=== PATIENT | female | born 1945 | race Two or more races ===

== ENCOUNTER 2018-07-12 13:28 | Outpatient (RCR) | payer MEDICARE, OTHER | END 2018-07-16 | disposition home or self-care (01) | LOC: WCC 13:28 | DX: L97.512 Non-pressure chronic ulcer of other part of right foot with fat layer exposed (principal); E11.621 Type 2 diabetes mellitus with foot ulcer; I70.201 Unspecified atherosclerosis of native arteries of extremities, right leg; I11.9 Hypertensive heart disease without heart failure; E11.9 Type 2 diabetes mellitus without complications; M06.9 Rheumatoid arthritis, unspecified | CPT/HCPCS: 11042; 87070; 87181; 87205 ==

== ENCOUNTER 2018-07-27 13:46 | Outpatient (RCR) | payer MEDICARE, OTHER | END 2018-08-15 | disposition home or self-care (01) | LOC: WCC 13:46 | DX: E11.621 Type 2 diabetes mellitus with foot ulcer (principal); L97.512 Non-pressure chronic ulcer of other part of right foot with fat layer exposed; I70.201 Unspecified atherosclerosis of native arteries of extremities, right leg; I11.9 Hypertensive heart disease without heart failure; E11.9 Type 2 diabetes mellitus without complications; M06.9 Rheumatoid arthritis, unspecified; Z79.82 Long term (current) use of aspirin; Z79.01 Long term (current) use of anticoagulants | CPT/HCPCS: 11042; 71045; 82962; G0277 ==

== ENCOUNTER → 2018-08-09 | Outpatient (CLI) | payer MEDICARE, OTHER ==
--- NOTE | 2018-08-09 17:43 | Diagnostic Imaging Report ---
Indication: Cough Technique: XRAY Chest 1v Comparison: None Findings: Heart size and mediastinal contours are within normal limits for AP technique. There is evidence of prior median sternotomy. There is fracturing of some superior sternal wires. Some surgical material is also noted in the bilateral hilar regions. Likely prior coronary arterial stenting. Additionally there is a approximately 1.8 cm linear metallic density structure projecting over the left upper quadrant may also be post surgical in etiology. Correlation with surgical history and physical exam also recommended. There is no definite focal airspace consolidation. Costophrenic sulci are sharp. No pneumothorax. No acute osseous abnormality. IMPRESSION: * No focal airspace consolidation or pleural effusion or pneumothorax. * Postoperative appearance of the chest with evidence of prior median sternotomy. * 1.8 cm linear metallic density projecting over the left upper quadrant may also be post surgical in etiology versus external to the patient versus ingested as it projects over the stomach. Correlation with history and prior exams is recommended to assess for stability of this finding. Correlation with physical exam is recommended. Additionally, repeat exam can be obtained to assess for persistence of this finding.
== END | disposition home or self-care (01) ==
LOC: RAD 12:22
DX: R05 Cough (principal); Z98.890 Other specified postprocedural states
CPT/HCPCS: 71045

== ENCOUNTER 2018-08-16 09:33 | Outpatient (RCR) | payer MEDICARE, OTHER ==
[2018-08-31] MEDS ORDERED: UNOBMED (15:14)
[2018-08-31] MEDS ORDERED: VALACYCLOVIR500 MG ORAL (19:48)
[2018-08-31] MEDS ORDERED: ASPIR 8181 MG ORAL (19:48)
[2018-08-31] MEDS ORDERED: FOLIC ACID1 MG ORAL (19:48)
[2018-08-31] MEDS ORDERED: ELIQUIS5 MG PO (19:48)
[2018-08-31] MEDS ORDERED: PENTOXIFYLLINE400 MG ORAL (19:48)
[2018-08-31] MEDS ORDERED: ISOSORBIDE MONO30 M1 PO (19:48)
[2018-08-31] MEDS ORDERED: DIOVAN80 MG ORAL (19:48)
[2018-08-31] MEDS ORDERED: METOPROLOL TART50 M1 ORAL (19:48)
[2018-08-31] MEDS ORDERED: DEXILANT60 MG ORAL (19:48)
[2018-08-31] MEDS ORDERED: AMLODIPINE BESYL5 MG ORAL (19:48)
[2018-08-31] MEDS ORDERED: METOPROLOL TART25 MG ORAL (19:48)
[2018-08-31] MEDS ORDERED: LYRICA75 M1 ORAL (19:48)
[2018-08-31] MEDS ORDERED: CILOSTAZOL100 MG PO (19:48)
[2018-08-31] MEDS ORDERED: LINZESS145 MCG PO (19:48)
[2018-08-31] MEDS ORDERED: METOPROLOL-HCT1 EAC3 ORAL (22:38)
== END 2018-09-15 | disposition home or self-care (01) ==
LOC: WCC 09:33
DX: E11.621 Type 2 diabetes mellitus with foot ulcer (principal); L97.512 Non-pressure chronic ulcer of other part of right foot with fat layer exposed; L97.511 Non-pressure chronic ulcer of other part of right foot limited to breakdown of skin; I70.201 Unspecified atherosclerosis of native arteries of extremities, right leg; Z98.84 Bariatric surgery status; I11.9 Hypertensive heart disease without heart failure; E11.9 Type 2 diabetes mellitus without complications; M06.9 Rheumatoid arthritis, unspecified; Z79.82 Long term (current) use of aspirin; Z79.01 Long term (current) use of anticoagulants
CPT/HCPCS: 11042; 82962; G0277

== ENCOUNTER 2018-08-31 12:09 | Inpatient (IN) | payer MEDICARE, OTHER ==
[~2018-08-31] VITALS: Ht 160 cm; Wt 63.4 kg
[2018-08-31 12:31] VITALS: BP 78/36
--- NOTE | 2018-08-31 13:04 | Emergency Room Report ---
History of Present Illness General Chief Complaint: Generalized Weakness Source: Patient Present Illness HPI Patient presents with complaints of low blood pressure Patient was seen by a primary physician/outside physician Patient's blood pressure was found to be low and sent to the emergency room Here the patient is not quite sure exactly what was causing the low blood pressure denies any fevers denies any chest pain and eyes any vomiting Patient reports that she had been taking a new medication for shingles and contribute some of her findings to that possibly Allergies: Coded Allergies: No Known Allergies (Unverified , 08/31/18) Patient History Past Medical History: see triage record Pertinent Family History: none Reviewed Nursing Documentation: PMH: Agreed; PSxH: Agreed Nursing Documentation-PMH Past Medical History: No History, Except For Hx Diabetes: Yes Review of Systems All Other Systems: negative except mentioned in HPI Physical Exam Vital Signs Date Time Temp Pulse Resp B/P (MAP) Pulse Ox O2 Delivery O2 Flow Rate FiO2 08/31/18 12:18 97.0 63 10 75/38 100 Room Air 97.0 Sp02 EP Interpretation: reviewed, normal General Appearance: other - Pallar Head: normocephalic, atraumatic Eyes: bilateral eye PERRL, bilateral eye EOMI ENT: hearing grossly normal, normal pharynx, TMs + canals normal, uvula midline Neck: full range of motion, supple, no meningismus, no bony tend Respiratory: lungs clear, normal breath sounds, no rhonchi, no respiratory distress, no retraction, no accessory muscle use Cardiovascular #1: normal peripheral pulses, regular rate, rhythm, no edema, no gallop, no JVD, no murmur Gastrointestinal: normal bowel sounds, non tender, soft, no mass, no organomegaly, non-distended, no guarding, no hernia, no pulsatile mass, no rebound Genitourinary: no CVA tenderness Musculoskeletal: normal inspection Neurologic: oriented x3, responsive, welder pipe making III-XII nml as tested, motor strength/ tone normal, sensory intact Psychiatric: mood/affect normal Skin: warm/dry, palpation normal, rash - Patient has healing ulcers on the right foot, other - Evidence of healing shingles on the left flank area dermatomal fashion Lymphatic: normal inspection, no adenopathy Medical Decision Making Diagnostic Impression: Primary Impression: Episode of generalized weakness Additional Impressions: Hypotensive episode Dehydration ER Course Patient is a fairly complex patient with multiple differential to consideration including but not limited to cardiac cardiopulmonary , infectious , metabolic and vascular emergencies Patient's blood work reveals abnormal kidney function Has responded well to IV bolus however given the significant hypotensive episode and the lack of obvious ideology patient will require admission Please note that we were also contacted by radiology Noting that there was a question of retained foreign body This is coming indicated to the admitting physician and will require further evaluation Labs Test 08/31/18 12:55 White Blood Count 5.2 K/UL (4.8-10.8) Red Blood Count 3.21 M/UL (4.20-5.40) Hemoglobin 9.2 G/DL (12.0-16.0) Hematocrit 27.7 % (37.0-47.0) Mean Corpuscular Volume 86 FL (80-99) Mean Corpuscular Hemoglobin 28.6 PG (27.0-31.0) Mean Corpuscular Hemoglobin Concent 33.1 G/DL (32.0-36.0) Red Cell Distribution Width 12.0 % (11.6-14.8) Platelet Count 193 K/UL (150-450) Mean Platelet Volume 8.4 FL (6.5-10.1) Neutrophils (%) (Auto) 54.4 % (45.0-75.0) Lymphocytes (%) (Auto) 34.4 % (20.0-45.0) Monocytes (%) (Auto) 9.2 % (1.0-10.0) Eosinophils (%) (Auto) 0.9 % (0.0-3.0) Basophils (%) (Auto) 1.1 % (0.0-2.0) Prothrombin Time 10.8 SEC (9.30-11.50) Prothromb Time International Ratio 1.0 (0.9-1.1) Activated Partial Thromboplast Time 27 SEC (23-33) Sodium Level 132 MMOL/L (136-145) Potassium Level 4.2 MMOL/L (3.5-5.1) Chloride Level 101 MMOL/L (98-107) Carbon Dioxide Level 19 MMOL/L (21-32) Anion Gap 12 mmol/L (5-15) Blood Urea Nitrogen 45 mg/dL (7-18) Creatinine 1.8 MG/DL (0.55-1.30) Estimat Glomerular Filtration Rate mL/min (>60) Glucose Level 131 MG/DL (74-106) Lactic Acid Level 1.30 mmol/L (0.4-2.0) Calcium Level 8.5 MG/DL (8.5-10.1) Total Bilirubin < 0.1 MG/DL (0.2-1.0) Aspartate Amino Transf (AST/SGOT) 17 U/L (15-37) Alanine Aminotransferase (ALT/SGPT) 16 U/L (12-78) Alkaline Phosphatase 79 U/L (46-116) Total Creatine Kinase 41 U/L (26-308) Creatine Kinase MB 0.9 NG/ML (0.0-3.6) Creatine Kinase MB Relative Index 2.1 Troponin I 0.001 ng/mL (0.000-0.056) Pro-B-Type Natriuretic Peptide 461 pg/mL (0-125) Total Protein 6.7 G/DL (6.4-8.2) Albumin 3.1 G/DL (3.4-5.0) Globulin 3.6 g/dL Albumin/Globulin Ratio 0.9 (1.0-2.7) Lipase 65 U/L (73-393) Rhythm Strip Diag. Results EP Interpretation: yes Rate: 67 Rhythm: NSR, no PVC's, no ectopy Chest X-Ray Diagnostic Results Chest X-Ray Diagnostic Results : Chest X-Ray Ordered: Yes # of Views/Limited/Complete: 1 View Indication: Chest Pain EP Interpretation: Yes Interpretation: no consolidation, no effusion, no pneumothorax, no acute cardiopulmonary disease Impression: No acute disease Electronically Signed by: DO PAPO Alexander Scribe Text Please note additional finding by radiology, reporting that there is a question of foreign body Last Vital Signs Date Time Temp Pulse Resp B/P (MAP) Pulse Ox O2 Delivery O2 Flow Rate FiO2 08/31/18 12:31 62 14 78/36 100 Room Air 08/31/18 12:18 97.0 97.0 Status: improved Disposition: ADMITTED INPATIENT Condition: Serious Referrals: NOT CHOSEN IPA/,REFERRING (PCP) Yanet Paez DO Aug 31, 2018 13:04
[2018-08-31 13:12] LABS: BASOPHILS % (AUTO) 1.1 % (0.0-2.0); EOSINOPHILS % (AUTO) 0.9 % (0.0-3.0); HEMATOCRIT 27.7 % (37.0-47.0); HEMOGLOBIN 9.2 G/DL (12.0-16.0); LYMPHOCYTES % (AUTO) 34.4 % (20.0-45.0); MEAN CORPUSCULAR VOLUME 86 FL (80-99); MONOCYTES % (AUTO) 9.2 % (1.0-10.0); NEUTROPHILS % (AUTO) 54.4 % (45.0-75.0); PLATELET COUNT 193 K/UL (150-450); RED BLOOD COUNT 3.21 M/UL (4.20-5.40); WHITE BLOOD COUNT 5.2 K/UL (4.8-10.8)
[2018-08-31 13:45] VITALS: BP 95/42
[2018-08-31 13:48] LABS: ANION GAP 12 mmol/L (5-15); BLOOD UREA NITROGEN 45 mg/dL (7-18); CALCIUM 8.5 MG/DL (8.5-10.1); CARBON DIOXIDE 19 MMOL/L (21-32); CHLORIDE 101 MMOL/L (98-107); CREATININE 1.8 MG/DL (0.55-1.30); POTASSIUM 4.2 MMOL/L (3.5-5.1); SODIUM 132 MMOL/L (136-145)
[2018-08-31 14:02] LABS: ALANINE AMINOTRANSFERASE 16 U/L (12-78); ALBUMIN 3.1 G/DL (3.4-5.0); ALBUMIN/GLOBULIN RATIO 0.9 (1.0-2.7); ALKALINE PHOSPHATASE 79 U/L (46-116); ASPARTATE AMINO TRANSFERASE 17 U/L (15-37); BILIRUBIN,TOTAL < 0.1 MG/DL (0.2-1.0); CKMB 0.9 NG/ML (0.0-3.6); CREATINE KINASE 41 U/L (26-308)
--- NOTE | 2018-08-31 14:48 | Diagnostic Imaging Report ---
Indication: Chest pain Technique: One view of the chest Comparison: 08/09/2018 Findings: Persistent elevation of the left hemidiaphragm, somewhat increased from the prior exam. Resultant minimal compressive atelectasis at the left lung base. Lungs and pleural spaces are otherwise clear. The heart size is normal. There is evidence of prior median sternotomy as well as prior coronary artery stenting. The heart size is normal. Again projected over the left upper quadrant of the abdomen is a curvilinear metallic opacity, also reported on prior study Impression: No acute process Elevated left hemidiaphragm Stable curvilinear density, possibly retained surgical needle, again seen projected below the left hemidiaphragm. Correlate with prior surgical history. If clinically indicated, CT may be useful to localize Findings discussed by phone with Dr. Isabel in the emergency room at the time of interpretation
[2018-08-31] MEDS ORDERED: UNOBMED (15:14)
[2018-08-31 16:59] VITALS: BP 98/39
[2018-08-31] MEDS ORDERED: LINZESS145 MCG PO (19:48)
[2018-08-31] MEDS ORDERED: METOPROLOL TART50 M1 ORAL (19:48)
[2018-08-31] MEDS ORDERED: CILOSTAZOL100 MG PO (19:48)
[2018-08-31] MEDS ORDERED: VALACYCLOVIR500 MG ORAL (19:48)
[2018-08-31] MEDS ORDERED: FOLIC ACID1 MG ORAL (19:48)
[2018-08-31] MEDS ORDERED: DIOVAN80 MG ORAL (19:48)
[2018-08-31] MEDS ORDERED: PENTOXIFYLLINE400 MG ORAL (19:48)
[2018-08-31] MEDS ORDERED: LYRICA75 M1 ORAL (19:48)
[2018-08-31] MEDS ORDERED: AMLODIPINE BESYL5 MG ORAL (19:48)
[2018-08-31] MEDS ORDERED: ELIQUIS5 MG PO (19:48)
[2018-08-31] MEDS ORDERED: ISOSORBIDE MONO30 M1 PO (19:48)
[2018-08-31] MEDS ORDERED: ASPIR 8181 MG ORAL (19:48)
[2018-08-31] MEDS ORDERED: METOPROLOL TART25 MG ORAL (19:48)
[2018-08-31] MEDS ORDERED: DEXILANT60 MG ORAL (19:48)
[2018-08-31 20:00] VITALS: BP 105/48
[2018-08-31] MEDS ORDERED: Milk of Magnesia 30ml Ud ORAL PRN (21:45)
[2018-08-31] MEDS ORDERED: METOPROLOL-HCT1 EAC3 ORAL (22:38)
[2018-09-01] VITALS: BP 137/71
[2018-09-01] MEDS ORDERED: Piperacillin/Tazobactam 3.375 GM in D5W 110 ML IVPB SCH ×2
--- NOTE | 2018-09-01 03:15 | History and Physical Report ---
DATE OF ADMISSION: 08/31/2018 REASON FOR ADMISSION: Generalized weakness and hypotension. HISTORY OF PRESENT ILLNESS: The patient is a 73-year-old female admitted for low blood pressure. The patient is closely cared for at the [facility]. The patient presented to the emergency room for further evaluation. Currently, denies any fevers or chills. The patient has not taken medication for shingles and is on multitude of other medical problems. PAST MEDICAL HISTORY: Notable for hypotension, reflux disease, possible coronary artery disease, chronic constipation, hypertension, hypertensive heart disease, recent diagnosis of shingles, evidence of neuropathy, and myelodysplastic syndrome. MEDICATIONS: Reviewed. ALLERGIES: Reviewed. SOCIAL HISTORY: The patient is currently unemployed. Nonsmoker and nondrinker. REVIEW OF SYSTEMS: Otherwise reviewed. All 10 points reviewed in detail. In general, the patient is weak and restless than usual. No focal pain. The patient is otherwise nonfocal. PHYSICAL EXAMINATION: GENERAL: A well-developed female, appears to be somewhat frail. VITAL SIGNS: In the emergency room, systolic blood pressure of 75. Current vital signs, blood pressure 80/39, temperature 97 degrees, pulse 67, and O2 sat is 100%. HEENT: Overall negative. NECK: Supple. No adenopathy. LUNGS: With adequate air entry. No rhonchi or wheezes. CARDIAC: Normal S1 and S2. Slightly distant. No murmurs, rubs, or gallops. Regular rate and rhythm. ABDOMEN: Soft, nontender, and nondistended. EXTREMITIES: No cyanosis or clubbing. No significant edema. NEUROLOGIC: Grossly nonfocal. Alert and oriented x3. SKIN: Noted and reviewed. Evidence of any shingles were not found. LABORATORY AND DIAGNOSTIC DATA: White cell count 5.2, hemoglobin 9.2, hematocrit 27, and platelets are normal. Sodium 132, BUN 45, and creatinine 1.8. Albumin is 3.1. Lipase 65. IMPRESSION: Hypotension, possible intravascular volume depletion; evidence of acute renal failure; hyponatremia; mild protein-calorie malnutrition; evidence of anemia, possible underlying infection; elevated hypertonic diaphragm, and questionable retained surgical needle. RECOMMENDATIONS: Supportive care. IV hydration. Empiric antibiotics. Resume medication. Monitor clinically. Monitor blood pressure. Followup renal function. We will obtain nephrology evaluation. We will assess clinically for further changes and recommendations. Discharge once improved and stable to home with home health. Lul Ocasio M.D. DR: MAYELA JOB#: [id number] CC:
[2018-09-01 04:00] VITALS: BP 113/46
[2018-09-01] MEDS: NovoLOG Insulin Flexpen SUBQ SCH ×4 (06:22→20:58)
[2018-09-01 08:00] VITALS: BP 149/63
[2018-09-01] MEDS: traMADol 50mg tab ORAL PRN ×2 (10:17→20:53)
[2018-09-01] MEDS: Heparin 5000 units/ml inj SUBQ SCH ×2 (10:21→18:00)
[2018-09-01] MEDS: valACYclovir HCL 500mg tab ORAL SCH (11:23)
[2018-09-01 12:00] VITALS: BP 149/66
[2018-09-01] MEDS ORDERED: Aspirin Baby 81mg ORAL SCH (12:00)
[2018-09-01] MEDS: Piperacillin/Tazobactam 3.375 GM in D5W 110 ML IVPB SCH ×2 (12:56→20:52)
--- NOTE | 2018-09-01 15:09 | Diagnostic Imaging Report ---
Clinical Indication: Evaluation of foreign body seen on prior plain radiograph Technique: Spiral acquisitions obtained through the chest. No IV contrast utilized, . Multiplanar reconstructions generated. Total dose length product 610.21 mGycm. CTDIvol(s) 16.29 mGy. Dose reduction achieved using automated exposure control Comparison: Chest radiograph dated 08/31/2018 Findings: Radiopaque curvilinear foreign body, configuration of which is suggestive of retained surgical needle, is seen in the anterior lower hemithorax, just above and anterior to the anterior diaphragm, immediately posterior to the fifth anterior intercostal space, at the anterior aspect of the pericardial fat. There is no evidence of surrounding inflammation or hemorrhage. Vague groundglass opacity is seen occupying much of the upper lobes bilaterally. Similar groundglass opacities are seen at the lung bases. No focal airspace consolidation. No infiltrates, effusions, nodules, or masses. There are extensive coronary artery calcifications and possible coronary stents. There is evidence of prior CABG. The heart size is normal. No pericardial effusion. The esophagus is unremarkable. No mediastinal or hilar mass or adenopathy is evident. The thyroid is enlarged and heterogeneous without definite discrete nodules. There are some calcifications within the thyroid. No axillary or chest wall mass or adenopathy. The bones demonstrate slight anterior wedging of the T11 vertebral body.. The included upper abdominal anatomy demonstrates small gallstones layering within the gallbladder. Calcifications in the renal sinuses are probably largely arterial. Impression: Radiopaque foreign body, likely a retained surgical needle, confirmed, seen in the anterior lower thorax either within the pericardial fat or within the anterior costophrenic sulcus. No evidence of surrounding inflammation, hemorrhage, or other complication related to such Nonspecific bilateral very faint pulmonary parenchymal groundglass opacities. These may represent areas of atelectasis or very early edema Evidence of prior CABG. Enlarged heterogeneous thyroid with calcifications, no definite discrete nodules Slight anterior wedging of the T11 vertebral body, could indicate a compression fracture, age indeterminate. Consider MRI to better characterize if patient is suspected to be symptomatic from this Cholelithiasis incidentally noted The CT scanner at [facility] is accredited by the [employer] and the scans are performed using protocols designed to limit radiation exposure to as low as reasonably achievable to attain images of sufficient resolution adequate for diagnostic evaluation.
[2018-09-01 16:00] VITALS: BP 143/80
--- NOTE | 2018-09-01 16:12 | Cardiology Report ---
APPROVED REPORT EKG Measurement Heart [id number] Normal sinus rhythm Minimal voltage criteria for LVH, may be normal variant Cannot rule out Inferior infarct, age undetermined Abnormal ECG
--- NOTE | 2018-09-01 18:24 | General Progress Note ---
Assessment/Plan Assessment/Plan IMPRESSION: Hypotension, possible intravascular volume depletion- improved; evidence of acute renal failure; hyponatremia; mild protein-calorie malnutrition; evidence of anemia, possible underlying infection; elevated diaphragm, and questionable retained surgical needle. RECOMMENDATIONS: Supportive care. IV hydration. Empiric antibiotics. maintain medication. Monitor clinically. Monitor blood pressure. Followup renal function and optimize. nephrology evaluation. We will assess clinically for further changes and recommendations. CT chest Discharge once improved and stable to home with home health. Subjective Allergies: Coded Allergies: No Known Allergies (Unverified , 08/31/18) Subjective bp now elevated weak has PT at home has some pain Objective Last 24 Hour Vital Signs Date Time Temp Pulse Resp B/P (MAP) Pulse Ox O2 Delivery O2 Flow Rate FiO2 09/01/18 16:00 97.0 81 19 143/80 (101) 99 97.0 09/01/18 12:00 97.9 77 22 149/66 (93) 99 97.9 09/01/18 12:00 67 09/01/18 11:23 73 149/63 09/01/18 10:47 98.0 09/01/18 10:17 98.0 09/01/18 09:37 98.0 09/01/18 09:07 98.0 09/01/18 08:10 Room Air 09/01/18 08:00 98.0 73 21 149/63 (91) 100 98.0 09/01/18 07:51 71 09/01/18 04:00 71 09/01/18 04:00 97.3 70 20 113/46 (68) 97 97.3 09/01/18 00:00 76 09/01/18 00:00 97.3 89 24 137/71 (93) 94 97.3 08/31/18 21:00 Room Air 08/31/18 20:00 97.3 73 20 105/48 (67) 99 97.3 08/31/18 20:00 72 08/31/18 18:43 Room Air Intake and Output 08/31/18 09/01/18 19:00 07:00 Intake Total 0 ml Balance 0 ml Intake Oral 0 ml # Voids 1 # Bowel Movements 1 Labs Test 08/31/18 12:55 White Blood Count 5.2 K/UL (4.8-10.8) Red Blood Count 3.21 M/UL (4.20-5.40) Hemoglobin 9.2 G/DL (12.0-16.0) Hematocrit 27.7 % (37.0-47.0) Mean Corpuscular Volume 86 FL (80-99) Mean Corpuscular Hemoglobin 28.6 PG (27.0-31.0) Mean Corpuscular Hemoglobin Concent 33.1 G/DL (32.0-36.0) Red Cell Distribution Width 12.0 % (11.6-14.8) Platelet Count 193 K/UL (150-450) Mean Platelet Volume 8.4 FL (6.5-10.1) Neutrophils (%) (Auto) 54.4 % (45.0-75.0) Lymphocytes (%) (Auto) 34.4 % (20.0-45.0) Monocytes (%) (Auto) 9.2 % (1.0-10.0) Eosinophils (%) (Auto) 0.9 % (0.0-3.0) Basophils (%) (Auto) 1.1 % (0.0-2.0) Prothrombin Time 10.8 SEC (9.30-11.50) Prothromb Time International Ratio 1.0 (0.9-1.1) Activated Partial Thromboplast Time 27 SEC (23-33) Sodium Level 132 MMOL/L (136-145) Potassium Level 4.2 MMOL/L (3.5-5.1) Chloride Level 101 MMOL/L (98-107) Carbon Dioxide Level 19 MMOL/L (21-32) Anion Gap 12 mmol/L (5-15) Blood Urea Nitrogen 45 mg/dL (7-18) Creatinine 1.8 MG/DL (0.55-1.30) Estimat Glomerular Filtration Rate mL/min (>60) Glucose Level 131 MG/DL (74-106) Hemoglobin A1c 10.3 % (4.3-6.0) Lactic Acid Level 1.30 mmol/L (0.4-2.0) Calcium Level 8.5 MG/DL (8.5-10.1) Total Bilirubin < 0.1 MG/DL (0.2-1.0) Aspartate Amino Transf (AST/SGOT) 17 U/L (15-37) Alanine Aminotransferase (ALT/SGPT) 16 U/L (12-78) Alkaline Phosphatase 79 U/L (46-116) Total Creatine Kinase 41 U/L (26-308) Creatine Kinase MB 0.9 NG/ML (0.0-3.6) Creatine Kinase MB Relative Index 2.1 Troponin I 0.001 ng/mL (0.000-0.056) Pro-B-Type Natriuretic Peptide 461 pg/mL (0-125) Total Protein 6.7 G/DL (6.4-8.2) Albumin 3.1 G/DL (3.4-5.0) Globulin 3.6 g/dL Albumin/Globulin Ratio 0.9 (1.0-2.7) Lipase 65 U/L (73-393) Height (Feet): 5 Height (Inches): 3.00 Weight (Pounds): 139 Objective GENERAL: A well-developed female, appears to be somewhat frail. but alert HEENT: Overall negative. NECK: Supple. No adenopathy. LUNGS: With adequate air entry. No rhonchi or wheezes. CARDIAC: Normal S1 and S2. Slightly distant. No murmurs, rubs, or gallops. Regular rate and rhythm. ABDOMEN: Soft, nontender, and nondistended. EXTREMITIES: No cyanosis or clubbing. No significant edema. NEUROLOGIC: Grossly nonfocal. Alert and oriented x3. SKIN: Noted and reviewed. Evidence of any shingles were not found. Lul Ocasio MD Sep 01, 2018 18:24
[2018-09-01 20:00] VITALS: BP 158/75
[2018-09-01] MEDS: Zolpidem 5mg tab ORAL PRN (22:02)
[2018-09-02] VITALS (7 sets, daily range): BP systolic 118–145; BP diastolic 64–78
[2018-09-02] MEDS: Piperacillin/Tazobactam 3.375 GM in D5W 110 ML IVPB SCH ×2 (03:19→12:15)
[2018-09-02] MEDS: NovoLOG Insulin Flexpen SUBQ SCH ×4 (06:14→20:31)
[2018-09-02 08:10] LABS: BASOPHILS % (AUTO) 0.3 % (0.0-2.0); EOSINOPHILS % (AUTO) 1.2 % (0.0-3.0); HEMATOCRIT 27.2 % (37.0-47.0); HEMOGLOBIN 9.4 G/DL (12.0-16.0); LYMPHOCYTES % (AUTO) 35.3 % (20.0-45.0); MEAN CORPUSCULAR VOLUME 86 FL (80-99); MONOCYTES % (AUTO) 6.8 % (1.0-10.0); NEUTROPHILS % (AUTO) 56.5 % (45.0-75.0); PLATELET COUNT 201 K/UL (150-450); RED BLOOD COUNT 3.18 M/UL (4.20-5.40); RED CELL DISTRIBUTION WIDTH 12.1 % (11.6-14.8)
--- NOTE | 2018-09-02 08:13 | Nephrology Progress Note ---
Subjective Allergies: Coded Allergies: No Known Allergies (Unverified , 08/31/18) Subjective Patient seen and consulted dictated Objective Last 24 Hour Vital Signs Date Time Temp Pulse Resp B/P (MAP) Pulse Ox O2 Delivery O2 Flow Rate FiO2 09/02/18 03:43 99.0 85 20 133/64 (87) 100 99.0 09/02/18 03:32 83 09/02/18 00:00 98.1 84 20 145/65 (91) 100 98.1 09/01/18 23:33 84 09/01/18 21:00 Room Air 09/01/18 20:00 97.5 91 19 158/75 (102) 99 97.5 09/01/18 19:07 87 09/01/18 16:00 97.0 81 19 143/80 (101) 99 97.0 09/01/18 15:14 72 09/01/18 12:00 97.9 77 22 149/66 (93) 99 97.9 09/01/18 12:00 67 09/01/18 11:23 73 149/63 09/01/18 10:47 98.0 09/01/18 10:17 98.0 09/01/18 09:37 98.0 09/01/18 09:07 98.0 Intake and Output 09/01/18 09/02/18 19:00 07:00 Intake Total 140 ml 1211.5 ml Balance 140 ml 1211.5 ml Intake Oral 120 ml IV Total 20 ml 1211.5 ml # Bowel Movements 1 Laboratory Tests 09/01/18 23:15: Troponin I 0.003 09/02/18 07:10: White Blood Count 6.0, Red Blood Count 3.18L, Hemoglobin 9.4L, Hematocrit 27.2L , Mean Corpuscular Volume 86, Mean Corpuscular Hemoglobin 29.5, Mean Corpuscular Hemoglobin Concent 34.5, Red Cell Distribution Width 12.1, Platelet Count 201, Mean Platelet Volume 8.0, Neutrophils (%) (Auto) 56.5, Lymphocytes (% ) (Auto) 35.3, Monocytes (%) (Auto) 6.8, Eosinophils (%) (Auto) 1.2, Basophils ( %) (Auto) 0.3, Sodium Level [Pending], Potassium Level [Pending], Chloride Level [Pending], Carbon Dioxide Level [Pending], Blood Urea Nitrogen [Pending], Creatinine [Pending], Estimat Glomerular Filtration Rate [Pending], Glucose Level [Pending], Calcium Level [Pending] Height (Feet): 5 Height (Inches): 3.00 Weight (Pounds): 139 Paolo Hernandez MD Sep 02, 2018 08:13
[2018-09-02 08:25] LABS: ANION GAP 7 mmol/L (5-15); BLOOD UREA NITROGEN 17 mg/dL (7-18); CALCIUM 8.4 MG/DL (8.5-10.1); CARBON DIOXIDE 26 MMOL/L (21-32); CHLORIDE 107 MMOL/L (98-107); CREATININE 1.1 MG/DL (0.55-1.30); POTASSIUM 4.4 MMOL/L (3.5-5.1); SODIUM 140 MMOL/L (136-145)
[2018-09-02] MEDS: Heparin 5000 units/ml inj SUBQ SCH ×2 (08:44→17:44)
[2018-09-02] MEDS ORDERED: Aspirin Baby 81mg ORAL SCH (09:00)
[2018-09-02] MEDS: traMADol 50mg tab ORAL PRN ×2 (11:12→20:35)
[2018-09-02] MEDS: valACYclovir HCL 500mg tab ORAL SCH (12:15)
--- NOTE | 2018-09-02 12:25 | Diagnostic Imaging Report ---
Indication:Elevated Bun and Creatinine. Technique: Grayscale and duplex Doppler imaging of the kidneys performed. Comparison: None Findings: The size, contour, and echogenicity of both kidneys are within normal limits. There are some punctate echogenic foci which shadow and probably small nonobstructive stones. Right kidney is 11.8 cm. Left kidney is 10.6 cm in length. There is no hydronephrosis. The bladder is moderately distended with a volume of about 280 cc. Patient had no urge to void. IVC is unremarkable. IMPRESSION: Small nonobstructive stone suspected within both kidneys. Distended urinary bladder
--- NOTE | 2018-09-02 13:22 | Cardiology Report ---
APPROVED REPORT EKG Measurement Heart [id number] [place] [id number] Normal sinus rhythm Normal ECG
--- NOTE | 2018-09-02 19:30 | Consultation ---
DATE OF CONSULTATION: 09/02/2018 CONSULTING PHYSICIAN: Paolo Hernandez M.D. REFERRING PHYSICIAN: Lul Ocasio M.D. REASON FOR CONSULTATION: 1. Hyponatremia. 2. Acute kidney injury. HISTORY OF PRESENT ILLNESS: The patient is a 73-year-old female, who was admitted for hypotension/low blood pressure. The patient had been at [facility] in the past. She was being closely [facility] and transferred to the emergency care for evaluation and now has been diagnosed with shingles and placed in respiratory isolation. Her creatinine on August 31, 2018 was 1.8. Morning laboratories are still pending. CURRENT MEDICATIONS: Reviewed. ALLERGIES: No known drug allergies. SOCIAL HISTORY: The patient is currently unemployed. No tobacco, alcohol, illicit drug use. FAMILY HISTORY: Positive for hypertension. PAST MEDICAL HISTORY: 1. Hypertension. 2. GERD. 3. Coronary artery disease. 4. Constipation. 5. CAD. 6. Recently diagnosed shingles. 7. Neuropathy. 8. Myelodysplastic syndrome. LABORATORY AND DIAGNOSTIC DATA: Laboratories dated August 31, 2018, sodium 132, potassium 4.2, creatinine 1.8, calcium 8.5. White cell count 5.2, hemoglobin 9.2, platelet count 193. PHYSICAL EXAMINATION: VITAL SIGNS: Blood pressure 133/64, respiratory rate 20, pulse 85, temperature 99.0, O2 saturation 100% on room air. GENERAL: The patient is awake, alert, not in distress. HEENT: Extraocular muscles intact. No lymphadenopathy . CARDIOVASCULAR: S1, S2. No rubs or gallops. Regular rate. PULMONARY: Clear to auscultation bilaterally. No rales, rhonchi or wheezes. ABDOMEN: Nondistended and nontender. EXTREMITIES: No edema. ASSESSMENT AND PLAN: 1. Acute kidney injury. At this time, most likely secondary to multifactorial, ATN from ischemic, hypotensive, renal injury in addition to the possibility of nephrotoxic, Valtrex. Continue to stabilize her hemodynamic situation along with aggressive hydration. Morning labs are currently pending. Renal ultrasound to rule out possibility of obstructive nature. Continue aggressive hydration and hemodynamic stability while avoiding any further nephrotoxins. 2. Shingles. The patient on Valtrex. She will need aggressive hydration as patient is on Valtrex. 3. Hypotension has resolved. Continue aggressive hydration. Let me take this opportunity to thank Dr. Ocasio. Paolo Hernandez MD DR: Aspen JOB#: [id number] CC: [email or web address]
[2018-09-02] MEDS: Zolpidem 5mg tab ORAL PRN (20:32)
[2018-09-03 04:00] VITALS: BP 143/67
[2018-09-03] MEDS: NovoLOG Insulin Flexpen SUBQ SCH ×3 (06:23→16:30)
[2018-09-03] MEDS ORDERED: sitaGLIPtin 50mg tab ORAL SCH (06:30)
[2018-09-03 07:13] LABS: ANION GAP 7 mmol/L (5-15); BLOOD UREA NITROGEN 17 mg/dL (7-18); CALCIUM 8.5 MG/DL (8.5-10.1); CARBON DIOXIDE 25 MMOL/L (21-32); CHLORIDE 107 MMOL/L (98-107); POTASSIUM 4.4 MMOL/L (3.5-5.1); SODIUM 139 MMOL/L (136-145)
[2018-09-03] MEDS: traMADol 50mg tab ORAL PRN (07:48)
--- NOTE | 2018-09-03 07:53 | Nephrology Progress Note ---
Assessment/Plan Assessment/Plan A/P 1) ANGELO- resolved, due to volume depletion and Valtrex - Renal US neg, stay well hydrated on Valtrex 2) Shingles- Valtrex 3) HTN- stable Subjective Date patient seen: Sep 03, 2018 Time patient seen: 07:52 ROS Limited/Unobtainable: No Allergies: Coded Allergies: No Known Allergies (Unverified , 08/31/18) All Systems: reviewed and negative except above Subjective Patient feels well, no distress Objective Last 24 Hour Vital Signs Date Time Temp Pulse Resp B/P (MAP) Pulse Ox O2 Delivery O2 Flow Rate FiO2 09/03/18 04:03 75 09/03/18 04:00 98.1 74 20 143/67 (92) 96 98.1 09/03/18 00:01 81 09/02/18 23:12 99.0 85 20 139/66 (90) 93 99.0 09/02/18 21:00 Room Air 09/02/18 20:00 97.3 92 20 142/70 (94) 98 97.3 09/02/18 19:52 85 09/02/18 16:00 97.2 84 20 118/69 (85) 100 97.2 09/02/18 16:00 84 09/02/18 12:00 78 09/02/18 12:00 97.3 81 20 142/75 (97) 100 97.3 09/02/18 11:42 97.3 09/02/18 11:12 97.7 09/02/18 09:00 Room Air 09/02/18 08:39 81 140/78 09/02/18 08:00 87 09/02/18 08:00 97.7 81 20 140/78 (98) 100 97.7 Intake and Output 09/02/18 09/03/18 19:00 07:00 Intake Total 368.5 ml Output Total 1200 ml Balance -831.5 ml Intake Oral 360 ml IV Total 8.5 ml Output Urine Total 1200 ml # Bowel Movements 1 Laboratory Tests 09/03/18 06:20: Sodium Level 139, Potassium Level 4.4, Chloride Level 107, Carbon Dioxide Level 25, Anion Gap 7, Blood Urea Nitrogen 17, Creatinine 1.0, Estimat Glomerular Filtration Rate , Glucose Level 178H, Calcium Level 8.5 Height (Feet): 5 Height (Inches): 3.00 Weight (Pounds): 139 General Appearance: no apparent distress, alert EENT: normal ENT inspection Neck: normal alignment, supple Cardiovascular: normal rate, regular rhythm Respiratory/Chest: lungs clear, normal breath sounds Abdomen: non tender, soft Edema: no edema noted Arm (L), no edema noted Arm (R), no edema noted Leg (L), no edema noted Leg (R), no edema noted Pedal (L), no edema noted Pedal (R), no edema noted Generalized Paolo Hernandez MD Sep 03, 2018 07:53
[2018-09-03 08:00] VITALS: BP 154/76
[2018-09-03] MEDS ORDERED: Xarelto 10mg tab ORAL SCH (09:00)
[2018-09-03] MEDS: Heparin 5000 units/ml inj SUBQ SCH ×2 (09:17→17:53)
[2018-09-03] MEDS ORDERED: Tubing IV Secondary IV ONE (10:14)
[2018-09-03] MEDS ORDERED: NS 275ml ONE (10:14)
[2018-09-03] MEDS: valACYclovir HCL 500mg tab ORAL SCH (10:42)
[2018-09-03 12:00] VITALS: BP 155/68
--- NOTE | 2018-09-03 15:20 | General Progress Note ---
Assessment/Plan Assessment/Plan IMPRESSION: Hypotension, possible intravascular volume depletion- improved; evidence of acute renal failure; hyponatremia; mild protein-calorie malnutrition; evidence of anemia, possible underlying infection; elevated diaphragm, and questionable retained surgical needle. RECOMMENDATIONS: Supportive care. IV hydration- march dc. Empiric antibiotics- march dc. maintain medication. Monitor clinically. Monitor blood pressure. Followup renal function and optimize. nephrology evaluation. continue same and monitor for change update family Subjective Date patient seen: Sep 02, 2018 Allergies: Coded Allergies: No Known Allergies (Unverified , 08/31/18) Subjective overall stable weak at present Objective Last 24 Hour Vital Signs Date Time Temp Pulse Resp B/P (MAP) Pulse Ox O2 Delivery O2 Flow Rate FiO2 09/02/18 20:00 97.3 92 20 142/70 (94) 98 97.3 09/02/18 19:52 85 09/02/18 16:00 97.2 84 20 118/69 (85) 100 97.2 09/02/18 16:00 84 Intake and Output 09/02/18 09/03/18 18:59 06:59 Intake Total 396.0 ml Output Total 1200 ml Balance -804.0 ml Intake Oral 360 ml IV Total 36.0 ml Output Urine Total 1200 ml # Bowel Movements 1 Laboratory Tests 09/03/18 06:20: Sodium Level 139, Potassium Level 4.4, Chloride Level 107, Carbon Dioxide Level 25, Anion Gap 7, Blood Urea Nitrogen 17, Creatinine 1.0, Estimat Glomerular Filtration Rate , Glucose Level 178H, Calcium Level 8.5 Height (Feet): 5 Height (Inches): 3.00 Weight (Pounds): 139 Objective GENERAL: A well-developed female, appears to be somewhat frail. but alert HEENT: Overall negative. NECK: Supple. No adenopathy. LUNGS: With adequate air entry. No rhonchi or wheezes. CARDIAC: Normal S1 and S2. Slightly distant. No murmurs, rubs, or gallops. Regular rate and rhythm. ABDOMEN: Soft, nontender, and nondistended. EXTREMITIES: No cyanosis or clubbing. No significant edema. NEUROLOGIC: Grossly nonfocal. Alert and oriented x3. SKIN: Noted and reviewed. Evidence of any shingles were not found. Lul Ocasio MD Sep 03, 2018 15:20
--- NOTE | 2018-09-03 15:23 | General Progress Note ---
Assessment/Plan Assessment/Plan IMPRESSION: Hypotension, possible intravascular volume depletion- improved; evidence of acute renal failure; hyponatremia; mild protein-calorie malnutrition; evidence of anemia, possible underlying infection; elevated diaphragm, and questionable retained surgical needle. RECOMMENDATIONS: Supportive care. IV hydration- march dc. Empiric antibiotics- march dc. maintain medication. Monitor clinically. Monitor blood pressure. Followup renal function and optimize. nephrology evaluation. continue same and monitor for change update family family aware of CABG and prior foreign body; will give CT chest and asked to follow up with thoracic as needed Subjective Allergies: Coded Allergies: No Known Allergies (Unverified , 08/31/18) Subjective overall stable weak at present d/w family aware of prior CABG and family aware of foreign body... Objective Last 24 Hour Vital Signs Date Time Temp Pulse Resp B/P (MAP) Pulse Ox O2 Delivery O2 Flow Rate FiO2 09/03/18 12:00 76 09/03/18 12:00 97.7 76 20 155/68 (97) 96 97.7 09/03/18 09:49 Room Air 09/03/18 09:09 90 154/76 09/03/18 08:18 97.0 09/03/18 08:00 88 09/03/18 08:00 97.0 90 16 154/76 (102) 96 97.0 09/03/18 04:03 75 09/03/18 04:00 98.1 74 20 143/67 (92) 96 98.1 09/03/18 00:01 81 09/02/18 23:12 99.0 85 20 139/66 (90) 93 99.0 09/02/18 21:00 Room Air 09/02/18 20:00 97.3 92 20 142/70 (94) 98 97.3 09/02/18 19:52 85 09/02/18 16:00 97.2 84 20 118/69 (85) 100 97.2 09/02/18 16:00 84 Intake and Output 09/02/18 09/03/18 18:59 06:59 Intake Total 396.0 ml Output Total 1200 ml Balance -804.0 ml Intake Oral 360 ml IV Total 36.0 ml Output Urine Total 1200 ml # Bowel Movements 1 Laboratory Tests 09/03/18 06:20: Sodium Level 139, Potassium Level 4.4, Chloride Level 107, Carbon Dioxide Level 25, Anion Gap 7, Blood Urea Nitrogen 17, Creatinine 1.0, Estimat Glomerular Filtration Rate , Glucose Level 178H, Calcium Level 8.5 Height (Feet): 5 Height (Inches): 3.00 Weight (Pounds): 139 Objective GENERAL: A well-developed female, appears to be somewhat frail. but alert HEENT: Overall negative. NECK: Supple. No adenopathy. LUNGS: With adequate air entry. No rhonchi or wheezes. CARDIAC: Normal S1 and S2. Slightly distant. No murmurs, rubs, or gallops. Regular rate and rhythm. ABDOMEN: Soft, nontender, and nondistended. EXTREMITIES: No cyanosis or clubbing. No significant edema. NEUROLOGIC: Grossly nonfocal. Alert and oriented x3. SKIN: Noted and reviewed. Evidence of any shingles were not found. Lul Ocasio MD Sep 03, 2018 15:23
[2018-09-03 16:00] VITALS: BP 157/67
[2018-09-03] MEDS ORDERED: valACYclovir HCL 500mg tab ORAL SCH (21:00)
--- NOTE | 2018-09-04 10:21 | Discharge Summary ---
Discharge Summary Discharge Summary _ DATE OF ADMISSION: 08/31/2018 DATE OF DISCHARGE: 09/03/2018 REASON FOR ADMISSION: 73 years old female with past medical history of coronary artery disease, status post CABG , recent diagnosis of shingles, hypertension, hypertensive heart disease, chronic constipation, neuropathy, myelodysplastic syndrome, diabetes mellitus, was sent from the office for hypotension. Upon presentation patient was hypotensive with blood pressure 75/38. Patient denied chest pain or shortness of breath. Laboratory workup revealed no leukocytosis, hemoglobin 9.2, hematocrit 27.7. BUN 45, creatinine 1.8. Sodium 132. Lactic acid 1.3. Troponin negative. ProBNP 461. EKG revealed sinus rhythm, no acute ischemic changes. Chest x-ray revealed no acute cardio pulmonary pathology , but showed evidence of probable retained foreign-body. Patient admitted with diagnoses of hypertension, probably dehydration ,acute renal failure, hyponatremia, mild protein calorie malnutrition ,anemia, possibly underlying infection, questionable retained surgical needle. CONSULTANTS: entry level business analyst Dr. Hernandez [facility] COURSE: Patient admitted to telemetry floor and started on the IV hydration. Patient started on empiric antibiotics. Blood pressure was closely monitored. Nephrology consult was requested. Renal ultrasound revealed normal bilateral kidneys echogenicity. No hydronephrosis. Small nonobstructive stone suspected within both kidneys. Renal parameters and electrolytes were closely monitored. Electrolytes corrected as needed , and nephrotoxins were avoided. With IV hydration acute renal failure resolved. Prior to discharge BUN 17, creatinine 1.0. Sodium 139. Hemoglobin and hematocrit were closely monitored with goal to keep hemoglobin above 7. Hemoglobin and hematocrit remained at the baseline. Blood sugar was closely monitored and managed with Januvia and sliding scale of insulin. Hemoglobin A1c -10.3 , clearly not at goal. Patient will need optimization of anti-glycemic regimen as outpatient. DVT and GI Prophyllin provided. Blood culture were negative. No evidence of infection , antibiotic stopped. Patient undergone CT of the chest confirmed retained surgical needle. Discussed with family regarding retained surgical needle. CT chest given to family and encouraged to follow-up with thoracic surgeon. Blood pressure was stabilized with IV fluids. Patient started on low-dose of Amlodipine. Antiplatelet therapy with aspirin continued. Repeated troponin was negative. Patient clinically improved and was ready for discharge home with home health services. FINAL DIAGNOSES: Hypotension, secondary to intravascular volume depletion due to dehydration Acute renal failure- resolved Hyponatremia -resolved Mild protein calorie malnutrition Anemia Retained surgical needle DISCHARGE MEDICATIONS: See Medication Reconciliation list. DISCHARGE INSTRUCTIONS: Patient was discharged home with home health services. Follow up with primary care provider in one week. I have been assigned to dictate discharge summary for this account. I was not involved in the patient's management. Nancy Wade NP Sep 04, 2018 10:21
== END 2018-09-03 17:54 | disposition home health service (06) | DRG 315 ==
LOC: EMR 12:45 → EDBEDREQ 13:38 → 2E 13:40 → EDBEDREQ 15:16 → 2E 17:20
DX: I95.9 Hypotension, unspecified (principal); N17.9 Acute kidney failure, unspecified; E87.1 Hypo-osmolality and hyponatremia; E44.1 Mild protein-calorie malnutrition; E86.0 Dehydration; K21.9 Gastro-esophageal reflux disease without esophagitis; I25.10 Atherosclerotic heart disease of native coronary artery without angina pectoris; I11.9 Hypertensive heart disease without heart failure; B02.9 Zoster without complications; D46.9 Myelodysplastic syndrome, unspecified; D64.9 Anemia, unspecified; Z95.1 Presence of aortocoronary bypass graft; M79.5 Residual foreign body in soft tissue
CPT/HCPCS: 36415; 71045; 71250; 76770; 80048; 80053; 82550; 82553; 82962; 83036; 83605; 83690; 83880; 84484; 85025; 85610; 85730; 87040; 93005; 96360; 99285; J1815

== ENCOUNTER 2018-09-27 12:32 | Outpatient (RCR) | payer MEDICARE, OTHER ==
[~2018-09-27 12:32] MED LIST: AMLODIPINE BESYL5 MG ORAL; ASPIR 8181 MG ORAL; CILOSTAZOL100 MG PO; DEXILANT60 MG ORAL; DIOVAN80 MG ORAL; ELIQUIS5 MG PO; FOLIC ACID1 MG ORAL; ISOSORBIDE MONO30 M1 PO; LINZESS145 MCG PO; LYRICA75 M1 ORAL; METOPROLOL TART25 MG ORAL; METOPROLOL TART50 M1 ORAL; METOPROLOL-HCT1 EAC3 ORAL; PENTOXIFYLLINE400 MG ORAL; UNOBMED; VALACYCLOVIR500 MG ORAL
== END 2018-10-15 | disposition home or self-care (01) ==
LOC: WCC 12:32
DX: L97.512 Non-pressure chronic ulcer of other part of right foot with fat layer exposed (principal); L97.511 Non-pressure chronic ulcer of other part of right foot limited to breakdown of skin; I70.201 Unspecified atherosclerosis of native arteries of extremities, right leg; E11.621 Type 2 diabetes mellitus with foot ulcer; I11.9 Hypertensive heart disease without heart failure; E11.9 Type 2 diabetes mellitus without complications; M06.9 Rheumatoid arthritis, unspecified; Z79.01 Long term (current) use of anticoagulants; Z79.82 Long term (current) use of aspirin
CPT/HCPCS: 97597